=== PATIENT | male | born 1985 | race Caucasian/White ===

== ENCOUNTER 2017-04-08 21:30 | Emergency (ER) | payer OTHER ==
[~2017-04-08] VITALS: Ht 185.4 cm; Wt 78.2 kg
[2017-04-08] MEDS ORDERED: KEFLEX500 MG PO (22:32)
[2017-04-08 23:10] LABS: MCH 30.2 PG (29.0-34.0); MCV 88.7 FL (86-99); MEAN PLAT.VOLUME 9.1 uM^3 (9.0-12.4); PLATELET COUNT 258 K/uL (156-360); RBC DIS.WIDTH-CV 11.9 % (11.8-14.6); RBC DIS.WIDTH-SD 38.1 % (39-53); RED BLOOD COUNT 4.51 M/uL (4.00-5.50); WHITE BLOOD COUNT 13.1 K/uL (4.1-10.2)
[2017-04-08 23:15] VITALS: BP 128/80
[2017-04-08 23:28] LABS: CHLORIDE 102 mEq/L (99-109); POTASSIUM 4.1 mEq/L (3.7-5.4); SODIUM 139 mEq/L (136-147)
[2017-04-08 23:30] LABS: GLUCOSE 98 mg/dL (70-99)
[2017-04-08 23:31] LABS: ANION GAP 10 MEQ/L (2-14)
[2017-04-08 23:33] LABS: GFR ESTIMATE (CALCULATED) > 59 mL/min/
[2017-04-08 23:34] LABS: UREA NITROGEN (BUN) 15 mg/dL (9-23)
[2017-04-09 00:01] LABS: PROTHROMBIN TIME 11.5 SEC (10.2-12.9)
[2017-04-09 00:03] LABS: PTT 28.4 SEC (25-37)
== END 2017-04-08 23:18 ==
LOC: EDBD 21:30 → EME 21:30
PROVIDERS: Emergency Medicine
PROC: 0RSXXZZ Reposition Left Finger Phalangeal Joint, External Approach (ICD-10-PCS; principal; 2017-04-08)
DX: S63.287A Dislocation of proximal interphalangeal joint of left little finger, initial encounter (principal); W21.01XA Struck by football, initial encounter; Y93.61 Activity, american tackle football; Y92.149 Unspecified place in prison as the place of occurrence of the external cause
CPT/HCPCS: 73120; 73130; 80048; 85027; 85610; 85730; 99281; 99284; J0690; S0020